=== PATIENT | male | born 1995 ===

== ENCOUNTER 2017-11-15 09:42 | Emergency (ER) | payer SELFPAY | END 2017-11-15 10:36 | disposition home or self-care (01) | LOC: ERS 09:42 | DX: K64.4 Residual hemorrhoidal skin tags (principal); F41.9 Anxiety disorder, unspecified; F32.9 Major depressive disorder, single episode, unspecified; F17.210 Nicotine dependence, cigarettes, uncomplicated; Z71.6 Tobacco abuse counseling | CPT/HCPCS: 99406 ==